=== PATIENT | female | born 1960 | race Caucasian/White ===

== ENCOUNTER 2018-09-20 21:54 | Emergency (ER) | payer OTHER ==
[2018-09-20] MEDS ORDERED: HYDROCODONE/APAP 5/325 MG TAB ONE (22:49)
--- NOTE | 2018-09-20 23:53 | ER ---
Nurse's Notes [facility] Name: Malka Washburn Age: 58 yrs Sex: Female : 1960 Arrival Date: 09/20/2018 Time: 21:56 Bed 24 Private MD: Diagnosis: Other internal derangements of right knee Presentation: 09/20 22:04 Presenting complaint: Patient states: that that she was sitting in her recliner and fc felt as if her right knee pop. At that time she was unable to bend or straighten her knee. Did ice it. Unable to walk. Transition of care: patient was not received from another setting of care. Onset of symptoms was September 20, 2018 at 19:30. Risk Assessment: Do you want to hurt yourself or someone else? Patient reports no desire to harm self or others. Initial Sepsis Screen: Does the patient meet any 2 criteria? No. Patient's initial sepsis screen is negative. Does the patient have a suspected source of infection? No. Patient's initial sepsis screen is negative. Care prior to arrival: Ice pack applied to injury. Medication(s) given: Aleve at 2000. 22:04 Method Of Arrival: Wheelchair fc 22:04 Acuity: EMERITA 4 Triage Assessment: 22:04 General: Appears uncomfortable, Behavior is calm, cooperative, appropriate for age. fc Pain: Complains of pain in right leg Pain currently is 0 out of 10 on a pain scale. at worst was 8 out of 10 on a pain scale. Musculoskeletal: Circulation, motion, and sensation intact. Capillary refill < 3 seconds, Range of motion: limited in right knee. 22:04 Injury Description: pain and swelling. mg2 Historical: - Allergies: 23:57 No Known Allergies; fc - Home Meds: 23:57 Benicar 40 mg oral tab 1 tab once daily [Active]; metformin 850 mg Oral tab 1 tab 2 fc times per day [Active]; Triglide 160 mg oral tab 1 tab once daily [Active]; - PMHx: 23:57 Diabetes - NIDDM; High Cholesterol; Hypertension; fc - PSHx: 23:57 Hysterectomy; fc - Immunization history:: Last tetanus immunization: unknown, Flu vaccine is up to date. - Social history:: Smoking status: Patient/guardian denies using tobacco. - Ebola Screening: : Patient negative for fever greater than or equal to 101.5 degrees Fahrenheit, and additional compatible Ebola Virus Disease symptoms Patient denies exposure to infectious person Patient denies travel to an Ebola-affected area in the 21 days before illness onset. Screenin:32 Abuse screen: Denies threats or abuse. Denies injuries from another. Nutritional mg2 screening: No deficits noted. Tuberculosis screening: No symptoms or risk factors identified. Fall Risk Ambulatory Aid- None/Bed Rest/Nurse Assist (0 pts). Gait- Weak (10 pts.). Assessment: 22:31 General: Appears in no apparent distress. comfortable, Behavior is calm, cooperative. mg2 Pain: Complains of pain in right knee and right leg Pain does not radiate. Pain currently is 6 out of 10 on a pain scale. Quality of pain is described as aching, Pain began suddenly. Neuro: Level of Consciousness is awake, alert, obeys commands, Oriented to person, place, time, situation. Cardiovascular: Capillary refill < 3 seconds Patient's skin is warm and dry. Respiratory: Airway is patent Respiratory effort is even, unlabored, Respiratory pattern is regular, symmetrical. GI: No signs and/or symptoms were reported involving the gastrointestinal system. : No signs and/or symptoms were reported regarding the genitourinary system. EENT: No signs and/or symptoms were reported regarding the EENT system. Derm: Skin is intact, is healthy with good turgor, Skin is pink, warm \T\ dry. normal. Musculoskeletal: Circulation, motion, and sensation intact. Capillary refill < 3 seconds. Vital Signs: 22:04 BP 123 / 80; Pulse 87; Resp 20; Temp 98.2(O); Pulse Ox 97% on R/A; Weight 108.86 kg fc (R); Height 5 ft. 10 in. (177.80 cm) (R); Pain 0/10; 09/21 00:12 BP 122 / 78; Pulse 80; Resp 18; Pulse Ox 100% on R/A; Pain 2/10; mg2 09/20 22:04 Body Mass Index 34.44 (108.86 kg, 177.80 cm) ED Course: 09/20 21:56 Patient arrived in ED. as 22:08 Triage completed. fc 22:11 Arm band placed on Patient placed in an exam room, on a stretcher. fc 22:14 Salty Christie MD is Attending Physician. 22:15 Lemuel Johnston, RN is Primary Nurse. mg2 22:32 Patient has correct armband on for positive identification. mg2 22:50 X-ray completed. Portable x-ray completed in exam room. Patient tolerated procedure ag1 well. 23:52 Adiel Gallegos MD is Referral Physician. 09/21 00:11 No provider procedures requiring assistance completed. Patient did not have IV access mg2 during this emergency room visit. 00:11 Knee immobilizer applied on right knee. mg2 02:45 Knee Right 3 View XRAY In Process Unspecified. EDMS Administered Medications: 09/20 22:39 Drug: [place] 5 mg-325 mg 1 tabs Route: PO; mg2 23:11 Follow up: Response: No adverse reaction; Marked relief of symptoms mg2 Outcome: 23:53 Discharge ordered by . 09/21 00:12 Discharged to home via wheelchair, with friend. mg2 Condition: stable Discharge instructions given to patient, friend, Instructed on discharge instructions, follow up and referral plans. medication usage, Demonstrated understanding of instructions, follow-up care, medications, Prescriptions given X 1. 00:14 Patient left the ED. mg2 Signatures: Dispatcher [employer] EDMS Kamla Freed RN RN Yessenia Duarte Ashley ag1 Salty Christie MD MD Lemuel Johnston, RN RN mg2 Corrections: (The following items were deleted from the chart) 09/20 22:14 22:04 Musculoskeletal: Amputation of right knee. Circulation, motion, and sensation fc intact. Capillary refill < 3 seconds, Range of motion: limited in right knee fc
--- NOTE | 2018-09-20 23:53 | EDPHYS ---
Physician Documentation [facility] Name: Malka Washburn Age: 58 yrs Sex: Female : 1960 Arrival Date: 09/20/2018 Time: 21:56 Bed 24 Private MD: ED Physician Salty Christie HPI: 09/21 00:10 This 58 yrs old Female presents to ER via Wheelchair with complaints of Knee gs Injury. 00:10 The patient presents with pain, that is acute. The complaints affect the right knee. gs Context: resulted from twisting of the extremity. Onset: The symptoms/episode began/occurred acutely, just prior to arrival. Modifying factors: the symptoms are aggravated by movement, weight bearing, bending knee. Associated signs and symptoms: Pertinent negatives numbness, swelling, weakness. Severity of symptoms: At their worst the symptoms were moderate, in the emergency department the symptoms are unchanged. The patient has experienced similar episodes in the past, a few times. Historical: - Allergies: 09/20 23:57 No Known Allergies; fc - Home Meds: 23:57 Benicar 40 mg oral tab 1 tab once daily [Active]; metformin 850 mg Oral tab 1 tab 2 fc times per day [Active]; Triglide 160 mg oral tab 1 tab once daily [Active]; - PMHx: 23:57 Diabetes - NIDDM; High Cholesterol; Hypertension; fc - PSHx: 23:57 Hysterectomy; fc - Immunization history:: Last tetanus immunization: unknown, Flu vaccine is up to date. - Social history:: Smoking status: Patient/guardian denies using tobacco. - Ebola Screening: : Patient negative for fever greater than or equal to 101.5 degrees Fahrenheit, and additional compatible Ebola Virus Disease symptoms Patient denies exposure to infectious person Patient denies travel to an Ebola-affected area in the 21 days before illness onset. ROS: 09/21 00:10 All other systems are negative. gs Exam: 00:10 Head/Face: Normocephalic, atraumatic. Eyes: Pupils equal round and reactive to light, gs extra-ocular motions intact. Lids and lashes normal. Conjunctiva and sclera are non-icteric and not injected. Cornea within normal limits. Periorbital areas with no swelling, redness, or edema. ENT: Nares patent. No nasal discharge, no septal abnormalities noted. Tympanic membranes are normal and external auditory canals are clear. Oropharynx with no redness, swelling, or masses, exudates, or evidence of obstruction, uvula midline. Mucous membranes moist. Neck: Trachea midline, no thyromegaly or masses palpated, and no cervical lymphadenopathy. Supple, full range of motion without nuchal rigidity, or vertebral point tenderness. No Meningismus. Chest/axilla: Normal chest wall appearance and motion. Nontender with no deformity. No lesions are appreciated. Cardiovascular: Regular rate and rhythm with a normal S1 and S2. No gallops, murmurs, or rubs. Normal PMI, no JVD. No pulse deficits. Respiratory: Lungs have equal breath sounds bilaterally, clear to auscultation and percussion. No rales, rhonchi or wheezes noted. No increased work of breathing, no retractions or nasal flaring. Abdomen/GI: Soft, non-tender, with normal bowel sounds. No distension or tympany. No guarding or rebound. No evidence of tenderness throughout. Skin: Warm, dry with normal turgor. Normal color with no rashes, no lesions, and no evidence of cellulitis. Neuro: Awake and alert, GCS 15, oriented to person, place, time, and situation. Cranial nerves II-XII grossly intact. Motor strength 5/5 in all extremities. Sensory grossly intact. Cerebellar exam normal. Normal gait. 00:10 Constitutional: The patient appears alert, awake, uncomfortable. 00:10 Musculoskeletal/extremity: Circulation is intact in all extremities. Sensation intact. Joints: the right knee displays pain at rest, painful range of motion, swelling, tenderness. Vital Signs: 09/20 22:04 BP 123 / 80; Pulse 87; Resp 20; Temp 98.2(O); Pulse Ox 97% on R/A; Weight 108.86 kg fc (R); Height 5 ft. 10 in. (177.80 cm) (R); Pain 0/10; 09/21 00:12 BP 122 / 78; Pulse 80; Resp 18; Pulse Ox 100% on R/A; Pain 2/10; mg2 09/20 22:04 Body Mass Index 34.44 (108.86 kg, 177.80 cm) fc MDM: 09/20 22:27 Patient medically screened. 09/21 00:10 Differential diagnosis: closed fracture, contusion, abrasion, tendonitis. Data gs reviewed: vital signs, nurses notes, radiologic studies. Counseling: I had a detailed discussion with the patient and/or guardian regarding: the historical points, exam findings, and any diagnostic results supporting the discharge/admit diagnosis, radiology results, the need for outpatient follow up. Response to treatment: the patient's symptoms have mildly improved after treatment, and as a result, I will discharge patient. 09/20 22:31 Order name: Knee Right 3 View XRAY gs Administered Medications: 09/20 22:39 Drug: [place] 5 mg-325 mg 1 tabs Route: PO; mg2 23:11 Follow up: Response: No adverse reaction; Marked relief of symptoms mg2 Disposition: 09/20/18 23:53 Discharged to Home. Impression: Other internal derangements of right knee. - Condition is Stable. - Discharge Instructions: Knee Sprain. - Prescriptions for Tylenol- Codeine #4 300-60 mg Oral Tablet - take 1 tablet by ORAL route every 6 hours As needed; 10 tablet. - Medication Reconciliation Form, Thank You Letter, Antibiotic Education, Prescription Opioid Use form. - Follow up: Adiel Gallegos MD; When: 2 - 3 days; Reason: Re-evaluation by your physician. Signatures: Dispatcher [employer] EDMS Kamla Freed RN RN Salty Christie MD MD Lemuel Johnston RN RN mg2 Corrections: (The following items were deleted from the chart) 09/21 00:14 09/20 23:53 09/20/2018 23:53 Discharged to Home. Impression: Other internal mg2 derangements of right knee. Condition is Stable. Forms are Medication Reconciliation Form, Thank You Letter, Antibiotic Education, Prescription Opioid Use. Follow up: Dr. Adiel Gallegos; When: 2 - 3 days; Reason: Re-evaluation by your physician. gs
--- NOTE | 2018-09-21 10:55 | RAD REPORT ---
EXAM DESCRIPTION: RAD - Knee Right 3 View - 09/20/2018 10:55 pm CLINICAL HISTORY: PAIN COMPARISON: No comparisons FINDINGS: Tricompartmental osteoarthritic changes are present, greatest in medial joint compartment with near [id number]. Chondrocalcinosis is seen. No acute fracture or dislocation is present.
== END 2018-09-21 00:14 | disposition home or self-care (01) ==
LOC: ER 21:54
DX: M23.91 Unspecified internal derangement of right knee (principal); E11.9 Type 2 diabetes mellitus without complications; I10 Essential (primary) hypertension; E78.00 Pure hypercholesterolemia, unspecified; Z79.84 Long term (current) use of oral hypoglycemic drugs
CPT/HCPCS: 99284

== ENCOUNTER 2019-04-02 06:33 | Day surgery (SDC) | payer OTHER ==
--- NOTE | 2019-03-27 13:20 | RAD REPORT ---
EXAM DESCRIPTION: RAD - Chest Pa And Lat (2 Views) - 03/27/2019 1:15 pm CLINICAL HISTORY: preop Chest pain. COMPARISON: No comparisons FINDINGS: The lungs are clear. The heart is upper limit of normal in size. No displaced fractures. IMPRESSION: No acute or concerning finding suspected.
[2019-03-27 13:48] LABS: Absolute Lymphocytes (CBC) 2.8 K/uL (0.7-4.9); Basophils % 2.7 % (0-1.3); Hematocrit 46.2 % (36.0-45.0); Lymphocytes % 30.5 % (15.3-44.8); MPV 11.6 fL (7.6-11.3); RBC Red Blood Cell Count 5.09 M/uL (3.86-4.86)
[2019-03-27 13:50] LABS: Protime INR 1.01
[2019-03-27 14:00] LABS: Potassium 3.9 mmol/L (3.5-5.1)
--- NOTE | 2019-03-27 14:56 | EKG ---
Test Date: 2019-03-27 Test Time: 13:05:47 Diamond Sander: JOHN MEASUREMENT RESULTS: Intervals: Rate: 83 HI: 192 QRSD: 100 QT: 394 QTc: 462 Effort: P: 30 HI: 192 QRS: -13 T: 35 INTERPRETIVE STATEMENTS: Normal sinus rhythm Normal ECG Compared to ECG 12/09/2003 16:23:00 No significant changes Electronically Signed On 03-27-19 14:55:58 CDT by Robert Aviles
--- OUTSIDE RECORDS SUMMARY | 2019-04-02 06:34 | XMS REPORT ---
:1960 Author Organization [employer] Care Team Providers Name Role Phone El Adiel Provider Role Unavailable Allergies No Known Allergies Problems Problem Type Condition Code Onset Dates Condition Status Problem Primary osteoarthritis of right knee M17.11 Active Problem Loose body in knee, right knee M23.41 Active Medications No Known Medications Results No Known Results Summary Purpose [employer] Submission
[2019-04-02] MEDS ORDERED: NA CHLORIDE 0.9% 1,000 ML ONE ×2 (06:46→08:02)
[2019-04-02] MEDS ORDERED: CEFAZOLIN/SWI 2gm 2 GM/20 ML SYR ONE (06:46)
[2019-04-02] MEDS ORDERED: PROPOFOL 200 MG/20 ML VIAL IV ONE (07:21)
[2019-04-02] MEDS ORDERED: GLYCOPYRROLATE 0.2 MG/ML SYR ONE (07:21)
[2019-04-02] MEDS ORDERED: FENTANYL CITR 100 MCG/2 ML ONE (07:21)
[2019-04-02] MEDS ORDERED: BUPIVACAINE 0.25% PF 10 ML VIAL ONE (07:21)
[2019-04-02] MEDS ORDERED: MIDAZOLAM HCL 2 MG/2 ML INJ ONE (07:21)
[2019-04-02] MEDS ORDERED: LIDOCAINE 1% MPF 2 ML AMPULE ONE (07:25)
[2019-04-02] MEDS ORDERED: ONDANSETRON 4 MG/2 ML VIAL ONE ×3 (08:38→09:35)
--- NOTE | 2019-04-02 08:58 | P.BOP ---
Preoperative diagnosis: right knee medial meniscus tear, right knee loose body Postoperative diagnosis: same Primary procedure: right knee arthroscopic partial medial meniscectomy Secondary procedure: right knee arthroscopic removal of loose body lateral compartment Top Tile Decorator: NONE,NONE Estimated blood loss: 5 cc Specimen: none Findings: see dictation Anesthesia: General Implants: none Fluids & blood products: per anesthesia; TT: 35 mins @ 300 mmHg Transferred to: Recovery Room Condition: Good
[2019-04-02] MEDS: HYDROMORPHONE HCL 2 MG/ML inj ONE ×2 (09:04→09:10)
[2019-04-02] MEDS ORDERED: HYDROCODONE/APAP 7.5/325 MG TAB ONE (10:40)
--- NOTE | 2019-04-03 12:35 | OP ---
Date of Procedure: 04/02/2019 Surgeon: Adiel Gallegos MD Preoperative Diagnoses: 1.Right knee medial meniscus tear. 2.Right knee osteoarthritis. 3.Right knee . Postoperative Diagnoses: 1.Right knee medial meniscus tear. 2.Right knee osteoarthritis. 3.Right knee . Procedure Performed: 1.Arthroscopic partial medial meniscectomy. 2.Arthroscopic loose body lateral compartment. Anesthesia: General, LMA. Fluids: Per Anesthesia record. Estimated Blood Loss: 5 cc. Tourniquet Time: 35 minutes at 300 mmHg. Indication For Procedure: Malka is a 59-year-old female who presented to my clinic medial meniscus tear loose body of the lateral compartment. The patient has failed conservative treatment, measures discussed with patient at length, risks and benefits associated with operative a nd nonoperative treatment. She expressed understanding and elected to proceed with operative treatme nt. Description Of Procedure: After informed consent was obtained, patient was identified in the preoper ative holding area. The right lower extremity was marked. The patient was then brought back to the operative room, transferred to the operating table in supine fashion, placed under general LMA anesth esia. The right lower extremity was then examined. The patient had . The right lower ext remity was prepped and draped in usual sterile fashion and time out was initiated, correct patient an d procedure were confirmed and identified. The patient with given a preoperative prophylactic antibi otic. The right lower extremity was then exsanguinated using Esmarch and the tourniquet was inflated 300 mmHg. Then, an anteromedial and anterolateral portal was created. Arthroscope was brought into the anterolateral portal and a diagnostic arthroscopy was performed, this was first brought into the patellofemoral compartment, there was noted to be some grade 3 chondromalacia changes in the trochlea r groove as well as undersurface of the patella. The arthroscope was brought into both medial and la teral gutters. There were no loose bodies found within the gutters. The arthroscope was then lindsey t in the medial compartment with the patient noted to have grade 4 chondromalacia changes noted of th e tibial plateau just medial meniscus body. There was noted to be a complex tear of the p osterior horn of the medial meniscus. A partial medial meniscectomy was performed using a meniscal b iter and an arthroscopic shaver . The arthroscope was brought into the lateral compartment , where the patient was noted to have a large body just underneath the lateral meniscus body. An art hroscopic grasper was then introduced into the body was removed. It was mm x 1 0 mm in size. There were no significant tears in the lateral meniscus noted and there griffin teau. The arthroscopic instruments were then removed, no complications. The wounds were then irriga julio césar thoroughly with normal saline and portals were approximated using 3-0 Monocryl. Sterile dressing s were applied. The patient was awakened and transferred to PACU in stable condition. Postoperative Plan: Malka will return to clinic next week for wound check protocol with p hysical therapy. AYESHA/MODL Voice ID: [id number] Report ID: [id number]
== END 2019-04-02 11:05 | disposition home or self-care (01) ==
LOC: OR 06:33
PROVIDERS: ATTEND Orthopaedic Surgery Sports Medicine
PROC: 0SBC4ZZ Excision of Right Knee Joint, Percutaneous Endoscopic Approach (ICD-10-PCS; principal; 2019-04-02 07:30)
DX: S83.231A Complex tear of medial meniscus, current injury, right knee, initial encounter (principal); M23.41 Loose body in knee, right knee; E11.9 Type 2 diabetes mellitus without complications; I10 Essential (primary) hypertension; Z79.82 Long term (current) use of aspirin; Z82.49 Family history of ischemic heart disease and other diseases of the circulatory system
CPT/HCPCS: 93005; 85025; 80048; 36415; 85610; 82962 ×2; 85730; 71046; 29881; J2704; J2250; J1170; J3010; J2001; J0690; J7030 ×2; J2405 ×3

== ENCOUNTER 2019-05-12 11:23 | Emergency (ER) | payer OTHER ==
[2019-05-12] MEDS ORDERED: TETANUS & DIPHTHERIA TOX,ADULT 0.5 ML VIAL ONE (12:26)
[2019-05-12] MEDS ORDERED: MUPIROCIN 2% OINT 22GM TUBE TOP ONE (12:26)
[2019-05-12] MEDS ORDERED: SMZ./TMP. 800/160 MG TABLET ONE (12:26)
[2019-05-12] MEDS ORDERED: DOXYCYCLINE 100 MG CAP PO ONE (12:26)
--- NOTE | 2019-05-12 12:32 | ER ---
Nurse's Notes [facility] Name: Malka Washburn Age: 59 yrs Sex: Female : 1960 Arrival Date: 05/12/2019 Time: 11:24 Bed 7 Private MD: Diagnosis: Cellulitis and acute lymphangitis of other parts of limb-left bfoot, dorsal;Abrasion, left lesser toe(s) Presentation: 05/12 11:34 Presenting complaint: Patient states: LEFT 3RD TOE INFLAMMATION AND ERYTHEMA. bp Transition of care: patient was not received from another setting of care. Onset of symptoms is unknown. Risk Assessment: Do you want to hurt yourself or someone else? Patient reports no desire to harm self or others. Initial Sepsis Screen: Does the patient meet any 2 criteria? No. Patient's initial sepsis screen is negative. Does the patient have a suspected source of infection? No. Patient's initial sepsis screen is negative. Care prior to arrival: None. 11:34 Method Of Arrival: Ambulatory bp 11:34 Acuity: EMERITA 3 bp Historical: - Allergies: 11:35 No Known Allergies; bp - Home Meds: 11:35 Benicar 40 mg Oral tab 1 tab once daily [Active]; metformin 850 mg Oral tab 1 tab 2 bp times per day [Active]; Triglide 160 mg Oral tab 1 tab once daily [Active]; - PMHx: 11:35 Diabetes - NIDDM; High Cholesterol; Hypertension; bp - Immunization history:: Adult Immunizations not up to date. - Social history:: Smoking status: Patient/guardian denies using tobacco. - Ebola Screening: : No symptoms or risks identified at this time. - Family history:: not pertinent. Screenin:40 Abuse screen: Denies threats or abuse. Nutritional screening: No deficits noted. tw2 Tuberculosis screening: No symptoms or risk factors identified. Fall Risk None identified. Assessment: 11:40 General: Appears in no apparent distress. well groomed, Behavior is calm, cooperative, tw2 appropriate for age. Pain: Complains of pain in Left third toenail. Neuro: Level of Consciousness is awake, alert, obeys commands, Oriented to person, place, time, situation. Cardiovascular: Heart tones S1 S2 Patient's skin is warm and dry. Respiratory: Airway is patent Respiratory effort is even, unlabored, Respiratory pattern is regular, symmetrical, Breath sounds are clear bilaterally. GI: No signs and/or symptoms were reported involving the gastrointestinal system. : No signs and/or symptoms were reported regarding the genitourinary system. EENT: No signs and/or symptoms were reported regarding the EENT system. Derm: edema and erythema noted to 3rd LEFT toe. 12:15 Reassessment: provider at bedside at this time. tw2 13:12 Reassessment: Patient appears in no apparent distress at this time. No changes from tw2 previously documented assessment. Patient and/or family updated on plan of care and expected duration. Pain level reassessed. Patient is alert, oriented x 3, equal unlabored respirations, skin warm/dry/pink. 13:54 Reassessment: Patient appears in no apparent distress at this time. No changes from tw2 previously documented assessment. Patient and/or family updated on plan of care and expected duration. Pain level reassessed. Patient is alert, oriented x 3, equal unlabored respirations, skin warm/dry/pink. Vital Signs: 11:35 BP 118 / 67; Pulse 96; Resp 20; Temp 97.9; Pulse Ox 97% ; Weight 67.13 kg; Height 5 ft. bp 10 in. (177.80 cm); 13:12 BP 111 / 61; Pulse 89; Resp 17; Pulse Ox 98% on R/A; tw2 11:35 Body Mass Index 21.24 (67.13 kg, 177.80 cm) bp ED Course: 11:24 Patient arrived in ED. as 11:34 Triage completed. bp 11:35 Arm band placed on. bp 11:36 Getachew Parr MD is Attending Physician. diana 11:40 Pricilla Harmon RN is Primary Nurse. tw2 11:40 Bed in low position. Call light in reach. tw2 12:28 Hema Sosa MD is Referral Physician. diana 12:48 X-ray completed. Portable x-ray completed in exam room. Patient tolerated procedure mh1 well. 12:49 Foot Left 3 View XRAY In Process Unspecified. EDMS 13:11 Awaiting for x-ray, Awaiting re-evaluation by ER provider, Awaiting: and provider to tw2 drain blister at this time PRIOR to discharge. 13:54 No provider procedures requiring assistance completed. Patient did not have IV access tw2 during this emergency room visit. Administered Medications: 12:30 Drug: Tetanus-Diphtheria Toxoid Adult 0.5 ml {Professional [employer]: [employer]. Exp: tw2 12/10/2020. Lot #: [id number]. } Route: IM; Site: right deltoid; 13:44 Follow up: Response: No adverse reaction tw2 12:34 Drug: Bactrim (160 mg-800 mg (DS) 1 tablet Route: PO; tw2 13:45 Follow up: Response: No adverse reaction tw2 12:34 Drug: Doxycycline 200 mg Route: PO; tw2 13:44 Follow up: Response: No adverse reaction tw2 13:44 Drug: Bactroban Ointment 2 % 1 application Route: Topical; Site: wound; tw2 Outcome: 12:31 Discharge ordered by . diana 13:54 Discharged to home ambulatory, with significant other. tw2 13:54 Condition: stable 13:54 Discharge instructions given to patient, significant other, Instructed on discharge instructions, follow up and referral plans. medication usage, wound care, Demonstrated understanding of instructions, follow-up care, medications, wound care, Prescriptions given X 3. 13:54 Patient left the ED. tw2 Signatures: Dispatcher [employer] EDMS Getachew Parr MD MD cha Harvey, Martha 1 Yessenia Duarte Tara, RN RN tw2 Jeffrey Samano RN RN bp
--- NOTE | 2019-05-12 12:32 | EDPHYS ---
Physician Documentation [facility] Name: Malka Washburn Age: 59 yrs Sex: Female : 1960 Arrival Date: 05/12/2019 Time: 11:24 Bed 7 Private MD: ED Physician Getachew Parr HPI: 05/12 12:23 This 59 yrs old Female presents to ER via Ambulatory with complaints of Toe diana Problem. 12:23 The patient presents with pain, swelling, tenderness. The complaints affect the left diana foot, left second toe. Context: The problem was sustained at an unknown location, resulted from blister. Onset: The symptoms/episode began/occurred 2 day(s) ago. Modifying factors: The symptoms are alleviated by nothing, the symptoms are aggravated by nothing. Associated signs and symptoms: The patient has no apparent associated signs or symptoms. Severity of symptoms: At their worst the symptoms were mild, in the emergency department the symptoms are unchanged. The patient has not experienced similar symptoms in the past. Historical: - Allergies: 11:35 No Known Allergies; bp - Home Meds: 11:35 Benicar 40 mg Oral tab 1 tab once daily [Active]; metformin 850 mg Oral tab 1 tab 2 bp times per day [Active]; Triglide 160 mg Oral tab 1 tab once daily [Active]; - PMHx: 11:35 Diabetes - NIDDM; High Cholesterol; Hypertension; bp - Immunization history:: Adult Immunizations not up to date. - Social history:: Smoking status: Patient/guardian denies using tobacco. - Ebola Screening: : No symptoms or risks identified at this time. - Family history:: not pertinent. ROS: 12:23 Constitutional: Negative for fever, chills, and weight loss, Eyes: Negative for injury, diana pain, redness, and discharge, ENT: Negative for injury, pain, and discharge, Neck: Negative for injury, pain, and swelling, Cardiovascular: Negative for chest pain, palpitations, and edema, Respiratory: Negative for shortness of breath, cough, wheezing, and pleuritic chest pain, Abdomen/GI: Negative for abdominal pain, nausea, vomiting, diarrhea, and constipation, Back: Negative for injury and pain, : Negative for injury, bleeding, discharge, and swelling, Neuro: Negative for headache, weakness, numbness, tingling, and seizure, Psych: Negative for depression, anxiety, suicide ideation, homicidal ideation, and hallucinations, Allergy/Immunology: Negative for hives, rash, and allergies, Endocrine: Negative for neck swelling, polydipsia, polyuria, polyphagia, and marked weight changes, Hematologic/Lymphatic: Negative for swollen nodes, abnormal bleeding, and unusual bruising. 12:23 MS/extremity: Positive for pain, swelling, tenderness, of the left second toe. 12:23 Skin: Positive for cellulitis, erythema, of the left third toe, medial aspect of left toes and Left third toenail. Exam: 12:23 Constitutional: This is a well developed, well nourished patient who is awake, alert, diana and in no acute distress. Head/Face: Normocephalic, atraumatic. Eyes: Pupils equal round and reactive to light, extra-ocular motions intact. Lids and lashes normal. Conjunctiva and sclera are non-icteric and not injected. Cornea within normal limits. Periorbital areas with no swelling, redness, or edema. ENT: Nares patent. No nasal discharge, no septal abnormalities noted. Tympanic membranes are normal and external auditory canals are clear. Oropharynx with no redness, swelling, or masses, exudates, or evidence of obstruction, uvula midline. Mucous membranes moist. Neck: Trachea midline, no thyromegaly or masses palpated, and no cervical lymphadenopathy. Supple, full range of motion without nuchal rigidity, or vertebral point tenderness. No Meningismus. Chest/axilla: Normal chest wall appearance and motion. Nontender with no deformity. No lesions are appreciated. Cardiovascular: Regular rate and rhythm with a normal S1 and S2. No gallops, murmurs, or rubs. Normal PMI, no JVD. No pulse deficits. Respiratory: Lungs have equal breath sounds bilaterally, clear to auscultation and percussion. No rales, rhonchi or wheezes noted. No increased work of breathing, no retractions or nasal flaring. Abdomen/GI: Soft, non-tender, with normal bowel sounds. No distension or tympany. No guarding or rebound. No evidence of tenderness throughout. Back: No spinal tenderness. No costovertebral tenderness. Full range of motion. Female : Normal external genitalia. Neuro: Awake and alert, GCS 15, oriented to person, place, time, and situation. Cranial nerves II-XII grossly intact. Motor strength 5/5 in all extremities. Sensory grossly intact. Cerebellar exam normal. Normal gait. Psych: Awake, alert, with orientation to person, place and time. Behavior, mood, and affect are within normal limits. 12:23 Skin: cellulitis, that is mild, induration, that is mild is noted, injury, abrasion(s), small abrasion noted, avulsion(s), a small of the left foot. Vital Signs: 11:35 BP 118 / 67; Pulse 96; Resp 20; Temp 97.9; Pulse Ox 97% ; Weight 67.13 kg; Height 5 ft. bp 10 in. (177.80 cm); 13:12 BP 111 / 61; Pulse 89; Resp 17; Pulse Ox 98% on R/A; tw2 11:35 Body Mass Index 21.24 (67.13 kg, 177.80 cm) bp MDM: 11:36 Patient medically screened. [facility] 12:28 Data reviewed: vital signs, nurses notes, radiologic studies, plain films. [facility] 05/12 12:28 Order name: Glucometer Result [place] 05/12 12:22 Order name: Foot Left 3 View XRAY [facility] 05/12 12:22 Order name: Blood Glucose Level; Complete Time: 12:27 [facility] 05/12 12:22 Order name: Wound dressing; Complete Time: 13:53 [facility] 05/12 12:22 Order name: Post-op shoe; Complete Time: 13:45 [facility] Administered Medications: 12:30 Drug: Tetanus-Diphtheria Toxoid Adult 0.5 ml {[employer]: [employer]. Exp: tw2 12/10/2020. Lot #: [id number]. } Route: IM; Site: right deltoid; 13:44 Follow up: Response: No adverse reaction tw2 12:34 Drug: Bactrim (160 mg-800 mg (DS) 1 tablet Route: PO; tw2 13:45 Follow up: Response: No adverse reaction tw2 12:34 Drug: Doxycycline 200 mg Route: PO; tw2 13:44 Follow up: Response: No adverse reaction tw2 13:44 Drug: Bactroban Ointment 2 % 1 application Route: Topical; Site: wound; tw2 Disposition: 05/12/19 12:31 Discharged to Home. Impression: Cellulitis and acute lymphangitis of other parts of limb - left bfoot, dorsal, Abrasion, left lesser toe(s). - Condition is Stable. - Discharge Instructions: Type 2 Diabetes Mellitus, Diagnosis, Adult, Cellulitis, Adult, [id number], Type 2 Diabetes Mellitus, Self Care, Adult, Type 2 Diabetes Mellitus, Self Care, Adult, [id number]. - Prescriptions for Bactroban 2 % Topical Ointment - Apply to affected area 1 application by TOPICAL route every 12 hours; 30 gram. Doxycycline Hyclate 100 mg Oral Tablet - take 1 tablet by ORAL route every 12 hours; 20 tablet. Bactrim DS 800- 160 mg Oral Tablet - take 1 tablet by ORAL route every 12 hours for 10 days; 20 tablet. - Medication Reconciliation Form, Thank You Letter, Antibiotic Education, Prescription Opioid Use, Work release form form. - Follow up: Private Physician; When: 2 - 3 days; Reason: Recheck today's complaints, Continuance of care, Re-evaluation by your physician. Follow up: Hema Sosa MD; When: 2 - 3 days; Reason: Recheck today's complaints, Continuance of care, Re-evaluation by your physician. - Problem is new. - Symptoms have improved. Signatures: Dispatcher [employer] EDMS Getachew Parr MD MD cha Wise, Tara, RN RN tw2 Jeffrey Samano RN RN bp Corrections: (The following items were deleted from the chart) 13:54 12:31 05/12/2019 12:31 Discharged to Home. Impression: Cellulitis and acute tw2 lymphangitis of other parts of limb - left bfoot, dorsal; Abrasion, left lesser toe(s). Condition is Stable. Forms are Work release form, Medication Reconciliation Form, Thank You Letter, Antibiotic Education, Prescription Opioid Use. Follow up: Private Physician; When: 2 - 3 days; Reason: Recheck today's complaints, Continuance of care, Re-evaluation by your physician. Follow up: Hema Sosa; When: 2 - 3 days; Reason: Recheck today's complaints, Continuance of care, Re-evaluation by your physician. Problem is new. Symptoms have improved. diana
--- NOTE | 2019-05-12 12:59 | RAD REPORT ---
EXAM DESCRIPTION: RAD - Foot Left 3 View - 05/12/2019 12:53 pm CLINICAL HISTORY: Pain;Swelling COMPARISON: No comparisons FINDINGS: Soft tissue swelling is seen involving the third toe distally. No underlying fracture or r adiopaque foreign body identified. No finding typical for osteomyelitis. Large plantar calcaneal spur .
[2019-05-12 13:59] VITALS: TEMP 97.9
[2019-05-12 14:00] VITALS: BP 111/61; O2SAT 98
== END 2019-05-12 13:54 | disposition home or self-care (01) ==
LOC: ER 11:23
DX: L03.116 Cellulitis of left lower limb (principal); I89.1 Lymphangitis; S90.415A Abrasion, left lesser toe(s), initial encounter; X58.XXXA Exposure to other specified factors, initial encounter; Y93.9 Activity, unspecified; Y92.9 Unspecified place or not applicable; E11.9 Type 2 diabetes mellitus without complications; I10 Essential (primary) hypertension; E78.00 Pure hypercholesterolemia, unspecified
CPT/HCPCS: 36415; 82962; 90471; 90714; 99283